=== PATIENT | female | born 1990 | race Caucasian/White ===

== ENCOUNTER 2021-02-04 21:51 | Emergency (ER) | payer MEDICAID, OTHER ==
[~2021-02-04] VITALS: Ht 170.2 cm; Wt 100.0 kg
[2021-02-04] MEDS ORDERED: AMOX TR/POT CLAV 875 MG/125 MG TABLET PO ONE (22:45)
[2021-02-04 22:50] VITALS: BP 133/79
== END 2021-02-04 23:22 | disposition home or self-care (01) ==
LOC: EMS 21:51
DX: H00.031 Abscess of right upper eyelid (principal); F17.210 Nicotine dependence, cigarettes, uncomplicated; F31.9 Bipolar disorder, unspecified
CPT/HCPCS: 99283

== ENCOUNTER 2021-12-04 00:13 | Emergency (ER) | payer OTHER ==
[~2021-12-04] VITALS: Ht 170.2 cm; Wt 106.8 kg
[2021-12-04] MEDS ORDERED: TraMADol HCL 50 MG TABLET PO ONE (02:00)
[2021-12-04 04:33] VITALS: BP 138/90
== END 2021-12-04 05:50 | disposition home or self-care (01) ==
LOC: EMS 00:15
DX: S22.32XA Fracture of one rib, left side, initial encounter for closed fracture (principal); F31.9 Bipolar disorder, unspecified; F17.210 Nicotine dependence, cigarettes, uncomplicated; W18.09XA Striking against other object with subsequent fall, initial encounter; Y93.89 Activity, other specified; Y92.89 Other specified places as the place of occurrence of the external cause; Y99.8 Other external cause status
CPT/HCPCS: 71101; 99283